=== PATIENT | female | born 1990 | race Caucasian/White ===

== ENCOUNTER → 2018-08-10 08:44 | Day surgery (SDC) | payer BC ==
[~2018-08-10 08:44] MED LIST: Acetaminophen TAB* 325 MG PO PRN; Buffered Lidocaine 0.9% SYRIN* 5 ML/SYR SYRINGE INTRADERM ONE; Bupivacaine 0.5% PF 10 ML VIAL INJ ONE; Dexamethasone IV* 4 MG/ML 1 ML (4 MG) ONE; DiMENhydriNATE IV* 50 MG/ML VIAL IV PUSH PRN; Ketorolac INJ* 30 MG/ML 1 ML VIAL ONE; Lidocaine 2% PF * 5 ML VIAL ONE; Metoclopramide IV* 5 MG/ML 2 ML VIAL ONE; Midazolam* 1 MG/ML 2 ML VIAL (2 MG) ONE; Naloxone* 0.4 MG/ML 1 ML VIAL IV PRN; Ondansetron INJ* 2 MG/ML VIAL ONE; Propofol* 10 MG/ML 20 ML BTL ONE; ceFAZolin 2 GM PREMIX in ORs 2 GM/50 ML BAG IVPB ONE; fentaNYL* 50 MCG/ML 2 ML VIAL (100 MCG VIAL) IV PRN; fentaNYL* 50 MCG/ML 2 ML VIAL (100 MCG VIAL) ONE; oxyCODONE TAB* 5 MG TAB ONE; oxyCODONE TAB* 5 MG TAB PO PRN
[2018-08-10 13:46] VITALS: BP 114/61
--- NOTE | 2018-08-11 10:18 | OP ---
DATE OF OPERATION: 08/10/18 - [facility] DATE OF : 89 ATTENDING SURGEON: Ilir Walters MD FOOD TASTER: Coleen Vann PA-C. PRE-OP DIAGNOSIS: Chronic stress changes, left third metatarsal. POST-OP DIAGNOSIS: Chronic stress changes, left third metatarsal. OPERATIVE PROCEDURE: Left shortening osteotomy Mark, and proximal bone biopsy. DESCRIPTION OF PROCEDURE: The patient was taken to the operating room where we used the previous longitudinal incision over the dorsum of the left foot. The third MTP joint was exposed by retracting the extensor tendons. A microsagittal saw was used to divide the metatarsal neck area in dorsal distal proximal plantar orientation. A 2-mm wedge of bone was removed after double cutting and then sliding the metatarsal head proximally. This was fixed with a 12-mm twist-off screw. Good fixation and alignment was obtained. Proximally at the third metatarsal shaft, we made a small oval corticotomy dorsally with the 2-mm power madisyn and then used a small curette to harvest cancellous bone, this was sent to pathology. The wound was then irrigated thoroughly closing with 3-0 Vicryl and 3-0 Monocryl subcu. We placed Steri-Strips and a compression dressing applied. [id number]/[facility] #: [id number] [facility]
== END | disposition home or self-care (01) ==
LOC: OR 08:44
PROVIDERS: ATTEND Orthopaedic Surgery
DX: M84.375A Stress fracture, left foot, initial encounter for fracture (principal); R00.2 Palpitations; J45.990 Exercise induced bronchospasm
CPT/HCPCS: 81025; 88304; 88311; A9270-GY; C1713; J0690; J1100; J1885; J2250; J2405; J2704; J2765; J3010